=== PATIENT | female | born 2000 | race Asian ===

== ENCOUNTER 2023-08-22 02:46 | Emergency (ER) | payer OTHER, SELFPAY ==
[2023-08-22 02:53] VITALS: BP 109/66; BP 130/90; PULSE 77; PULSE 78; RESP 18; O2SAT 98; O2SAT 99; BMI 21.5
[2023-08-22 02:58] LABS: Glucose, Whole Blood 145 mg/dL (60-115)
[2023-08-22 03:04] VITALS: BP 97/63; PULSE 81; RESP 14; O2SAT 100
--- NOTE | 2023-08-22 03:13 | ED_ITS ---
HPI - Alcohol General Chief Complaint: ETOH/Substance Use Stated Complaint: ETOH Time Seen by Provider: 08/22/23 03:11 Source: EMS Mode of arrival: EMS Limitations: other (Intoxicated) History of Present Illness HPI narrative: Patient comes to the emergency room complaining of alcohol intoxication, feeling nauseous. Patient was in a green party at [facility]. Patient denies any injury, denies SI or HI. She states she drank ?a lot? Related Data Allergies Allergy/AdvReac Type Severity Reaction Status Date / Time No Known Allergies Allergy Unverified 07/12/20 19:13 [No Known Allergies*] Review of Systems Review of Systems: Constitutional : No Weight loss, No Fever, No Chills, No Night Sweats, No Fatigue, No Malaise ENT/Mouth : No Hearing loss, No Ear Pain, No Nasal Congestion, No Sinus Pain, No Hoarseness, No sore throat, No Rhinorrhea, No Swallowing Difficulty Eyes: No Eye Pain, No Swelling, No Redness, No Foreign Body, No Discharge, No Vision Changes Cardiovascular : No Chest Pain, No SOB, No Dyspnea on Exertion, No Orthopnea, No Edema, No Palpitations Respiratory : No Cough, No Sputum, No Wheezing, No Smoke Exposure, No Dyspnea Gastrointestinal : No Nausea, No Vomiting, No Diarrhea, No Constipation, No abdominal Pain, No Hematochezia, No Melena Genitourinary : no irregular bleeding, No Dysuria, No Urinary Frequency, No Hematuria, No Urinary Incontinence, No Urgency, No Flank Pain, No Urinary Flow Changes, No Hesitancy Musculoskeletal : No joint pain, No Myalgias, No Joint Swelling Skin : No Skin Lesions, No rash Neuro : No Weakness, No Numbness, No Paresthesias, No Loss of Consciousness, No Dizziness, No Headache Psych : No Anxiety/Panic, No Depression, No SI/HI/AH/VH, admits to heavily drinking alcohol today at a green party in school Heme/Lymph: No Bruising, No Bleeding,No Lymphadenopathy Endocrine : No Polyuria, No Polydipsia, No Temperature Intolerance PMFSH Social History Social History Advance Directives: No Advance Directives Information Provided: No Physical Exam ED Vital Signs: Vital Signs - 24 hr 08/22/23 02:53 08/22/23 03:04 08/22/23 04:02 Pulse Rate 78 81 75 Respiratory Rate 18 14 17 Blood Pressure 109/66 97/63 90/54 L Pulse Oximetry 99 100 97 Oxygen Delivery Method Room Air Room Air Room Air 08/22/23 06:16 Pulse Rate 91 Respiratory Rate 14 Blood Pressure 93/51 L Pulse Oximetry 97 Oxygen Delivery Method Room Air BMI result Body Mass Index 21.5 Const Other: Appearance: Somnolent, easily arousable, answering questions Eyes: Pupils equal, round and reactive to light. ENT: Pharynx normal. Neck: Normal inspection. Neck supple. No lymph nodes noted. No crepitus CVS: Normal heart rate and rhythm. Pulses normal. Normal S1 and S2 Respiratory: No respiratory distress. Breath sounds normal. No Wheezing. No rales Abdomen: Soft and nontender. No rigidity. No distention. Skin: Skin warm and dry. Normal skin color. Normal skin turgor. Extremities: No lower extremity edema. No Lacerations. No Rash Neuro: Intoxicated, answering questions Psych: calm, cooperative Course Course Course Narrative: -patient is intoxicated, stable vitals, still arousable, answering questions -patient was given a dose of Zofran under the tongue for nausea -patient is not SI HI -plan: Metabolize to [place]/week for sober ride -physician observation started at 03:10 - Medical Decision Making Medical Decision Making [facility] Narrative: Point of care glucose 145 No signs of injury- -patient was on physician observation, 06:47, patient awake alert and oriented x3, vital stable, ready for discharge, composed police with picking her up Differential Diagnosis Differential Diagnoses: The differential diagnosis associated with the presentation includes (Alcohol intoxication, polysubstance abuse) Admission/Observation Consideration of admission/observation: Escalation of care including admi ssion/observation considered (Patient will remain under observation until clinically sober) Lab Data Labs: Lab Results 08/22/23 Range/Units 02:53 POC Glucose 145 H (60-115) mg/dL Medications Administered Discontinued Medications Generic Name Dose Route Start Last Admin Trade Name Freq PRN Reason Stop Dose Admin Ondansetron HCl 4 mg 08/22/23 03:12 08/22/23 03:36 Ondansetron Odt 4 Mg Tab.Rapdis TRANSLINGU 08/22/23 03:13 4 mg ONCE ONE Administration Critical Care Time Critical Care Time Critical Care Time: Yes Total Critical Care Time: 30 Attestation: I have personally provided critical care time. Time includes review of lab data, radiology results, discussion with consultants, and monitoring for potential decompensation. Intervention performed as documented. Discharge Plan Discharge Clinical Impression: Alcoholic intoxication Patient Disposition: Home, Self-Care Instructions: Alcohol Intoxication (ED) Additional Instructions: Please follow-up with your primary care physician tomorrow. If you have any worsening or new symptoms, please return to the emergency room or call 911
[2023-08-22] MEDS: Ondansetron ODT 4 MG TAB.RAPDIS TRANSLINGU (03:36)
[2023-08-22 04:02] VITALS: BP 90/54; PULSE 75; RESP 17; O2SAT 97
[2023-08-22 06:16] VITALS: BP 93/51; PULSE 91; RESP 14; O2SAT 97
--- NOTE | 2023-08-22 07:05 | PC.NURSE ---
pt alert and oriented, gait is steady and even, skin is warm and dry. pt feels safe to leave at this time
== END 2023-08-22 07:06 | disposition home or self-care (01) ==
PROVIDERS: Emergency Provider Emergency Medicine
DX: F10.920 Alcohol use, unspecified with intoxication, uncomplicated (principal); Y90.9 Presence of alcohol in blood, level not specified; R40.0 Somnolence
CPT/HCPCS: 82947; 99284